=== PATIENT | female | born 1945 | race Caucasian/White ===

== ENCOUNTER 2019-09-16 01:59 | Inpatient (IN) ==
[2019-09-16] MEDS ORDERED: Naloxone 0.4 MG/ML INJ IVP PRN (03:43)
[2019-09-16] MEDS ORDERED: Acetaminophen 325 MG TABLET PO PRN (04:03)
[2019-09-16] MEDS ORDERED: Ondansetron ODT 4 MG TAB.RAPDIS SL PRN (04:03)
[2019-09-16] MEDS ORDERED: Nitroglycerin 0.4 MG TAB.SUBL SL PRN (04:06)
[2019-09-16] MEDS ORDERED: *HR* Dextrose 50 % in Water (Syg) 50 ML SYRINGE IVP PRN (04:06)
[2019-09-16] MEDS ORDERED: D5% in Water 1,000 ML IVC PRN (04:06)
[2019-09-16] MEDS ORDERED: Dextrose Gel 15 GM/37.5 ML TUBE PO PRN ×2 (04:06)
[2019-09-16] MEDS ORDERED: 0.9 % Sodium Chloride 1,000 ML IVC SCH (04:45)
[2019-09-16] MEDS ORDERED: Nicotine 2 MG GUM BC PRN (05:26)
[2019-09-16] MEDS: Azithromycin 500 MG in 0.9 % Sodium Chloride 250 ML IVPB SCH (05:50)
[2019-09-16] MEDS ORDERED: *HR* Heparin 5,000 UNIT/ML VIAL SQ SCH (06:00)
[2019-09-16] MEDS: Ipratropium/Albuterol Neb 3 ML IH SCH ×4 (06:07→21:32)
[2019-09-16 07:49] LABS: Estimated Average Glucose 128 mg/dl
[2019-09-16] MEDS: Insulin LISPRO 300 UNITS/3 ML VIAL SQ SCH ×3 (08:59→18:03)
[2019-09-16] MEDS: MethylPREDNISolone 40 MG/ML VIAL IVP SCH ×2 (09:01→17:05)
[2019-09-16] MEDS: Nicotine 21 MG PATCH.TD24 TD SCH (09:01)
[2019-09-16] MEDS: Budesonide/Formoterol 160/4.5 1 PUFF INH IH SCH ×2 (10:52→21:32)
[2019-09-16] MEDS ORDERED: Heparin 25,000 UNIT/250 ML D5W 25,000 UNIT/250 ML IV.SOLN IVC SCH ×2 (11:26→14:00)
[2019-09-16] MEDS ORDERED: *HR* Heparin 5,000 UNIT/ML VIAL IVP ONE ×2 (11:27→14:00)
[2019-09-16] MEDS ORDERED: *HR* Heparin 5,000 UNIT/ML VIAL IVP PRN ×2 (14:00)
[2019-09-16] MEDS ORDERED: Perflutren Lipid Microsphere 1.3 ML in 0.9 % Sodium Chloride 8.7 ML IVP ONE (16:54)
[2019-09-16] MEDS: Pregabalin 75 MG CAPSULE PO SCH (20:56)
[2019-09-16] MEDS: Isosorbide MONOnitrate (24 HR) 30 MG TAB.ER.24H PO SCH (20:56)
[2019-09-16] MEDS: carvediloL 6.25 MG TABLET PO SCH (20:56)
[2019-09-16] MEDS: Benzonatate 100 MG CAPSULE PO SCH (20:56)
[2019-09-17] MEDS: MethylPREDNISolone 40 MG/ML VIAL IVP SCH ×3 (00:25→15:23)
[2019-09-17 01:01] LABS: Hematocrit 35.9 % (35.3-44.9); Hemoglobin 12.2 g/dL (11.5-15.4); Mean Corpuscular Hemoglobin 31.9 pg (28.0-33.3); Mean Corpuscular Volume 93.7 fL (83.0-100.0); Mean Platelet Volume 9.7 fL (9.4-12.4); Platelet Count 174 K/mcL (140-400); Red Blood Count 3.83 M/mcL (3.82-4.97); Red Cell Distribution Width 12.2 % (11.5-14.5); White Blood Count 9.4 K/mcL (4.3-11.1)
[2019-09-17 01:05] LABS: Prothrombin Time 11.8 Seconds (9.4-12.1)
[2019-09-17 01:21] LABS: Chol/HDL Ratio 2.7 (0-4.9)
[2019-09-17 01:22] LABS: BUN/Creatinine Ratio 29 (6-26); Blood Urea Nitrogen 20 mg/dL (8-23); Calcium 8.8 mg/dL (8.6-10.3); Carbon Dioxide 28 mEq/L (23-29); Chloride 101 mEq/L (98-107); Glucose 183 mg/dL (70-105); Magnesium 1.5 mg/dL (1.6-2.6); Osmolality,Calculated 291 (280-300); Phosphorous 2.8 mg/dL (2.7-4.5); Sodium 137 mEq/L (136-145); eGFR For African Americans > 60 (> 60); eGFR For Non-African Americans > 60 (> 60)
[2019-09-17] MEDS: Azithromycin 500 MG in 0.9 % Sodium Chloride 250 ML IVPB SCH (04:12)
[2019-09-17] MEDS: Ipratropium/Albuterol Neb 3 ML IH SCH ×4 (04:17→22:05)
[2019-09-17] MEDS: Furosemide 20 MG TABLET PO SCH (08:04)
[2019-09-17] MEDS: Loratadine 10 MG TABLET PO SCH (08:05)
[2019-09-17] MEDS: Pregabalin 75 MG CAPSULE PO SCH ×2 (08:05→21:47)
[2019-09-17] MEDS: Benzonatate 100 MG CAPSULE PO SCH ×3 (08:05→21:46)
[2019-09-17] MEDS: Cholecalciferol (D-3) 1,000 UNIT (25MCG) TABLET PO SCH (08:05)
[2019-09-17] MEDS: carvediloL 6.25 MG TABLET PO SCH ×2 (08:05→16:39)
[2019-09-17] MEDS: Insulin LISPRO 300 UNITS/3 ML VIAL SQ SCH ×4 (08:06→21:52)
[2019-09-17] MEDS: Nicotine 21 MG PATCH.TD24 TD SCH (08:06)
[2019-09-17] MEDS ORDERED: FLUoxetine 20 MG CAPSULE PO SCH ×2 (09:00)
[2019-09-17] MEDS ORDERED: predniSONE 20 MG TABLET PO SCH (09:00)
[2019-09-17] MEDS: Budesonide/Formoterol 160/4.5 1 PUFF INH IH SCH ×2 (11:11→22:05)
[2019-09-17] MEDS: Tiotropium 18 MCG inhalation IH SCH (11:13)
[2019-09-17] MEDS: *HR* Heparin 5,000 UNIT/ML VIAL SQ SCH (16:43)
[2019-09-17] MEDS: Isosorbide MONOnitrate (24 HR) 30 MG TAB.ER.24H PO SCH (21:47)
[2019-09-17] MEDS: Insulin DETEMIR 100 UNIT/ML X5UNITS SQ SCH (21:49)
[2019-09-17] MEDS ORDERED: *HR* Labetalol 20 MG/4 ML SYRINGE IVP ONE (21:53)
[2019-09-18] MEDS: Ipratropium/Albuterol Neb 3 ML IH SCH ×4 (03:20→22:38)
[2019-09-18 04:07] LABS: Hematocrit 34.6 % (35.3-44.9); Hemoglobin 12.1 g/dL (11.5-15.4); Mean Corpuscular Hemoglobin 32.5 pg (28.0-33.3); Mean Platelet Volume 9.9 fL (9.4-12.4); Platelet Count 161 K/mcL (140-400); Red Blood Count 3.72 M/mcL (3.82-4.97); Red Cell Distribution Width 12.3 % (11.5-14.5); White Blood Count 11.8 K/mcL (4.3-11.1)
[2019-09-18 04:27] LABS: BUN/Creatinine Ratio 30 (6-26); Blood Urea Nitrogen 26 mg/dL (8-23); Calcium 9.2 mg/dL (8.6-10.3); Carbon Dioxide 29 mEq/L (23-29); Chloride 98 mEq/L (98-107); Glucose 152 mg/dL (70-105); Osmolality,Calculated 286 (280-300); Sodium 134 mEq/L (136-145); eGFR For African Americans > 60 (> 60); eGFR For Non-African Americans > 60 (> 60)
[2019-09-18] MEDS: *HR* Heparin 5,000 UNIT/ML VIAL SQ SCH ×2 (05:21→16:59)
[2019-09-18] MEDS: Azithromycin 500 MG in 0.9 % Sodium Chloride 250 ML IVPB SCH (05:21)
[2019-09-18] MEDS: Insulin LISPRO 300 UNITS/3 ML VIAL SQ SCH ×4 (07:34→19:42)
[2019-09-18] MEDS: Tiotropium 18 MCG inhalation IH SCH (07:51)
[2019-09-18] MEDS: Pregabalin 75 MG CAPSULE PO SCH ×2 (09:11→19:41)
[2019-09-18] MEDS: Cholecalciferol (D-3) 1,000 UNIT (25MCG) TABLET PO SCH (09:11)
[2019-09-18] MEDS: carvediloL 6.25 MG TABLET PO SCH ×2 (09:12→16:59)
[2019-09-18] MEDS: predniSONE 20 MG TABLET PO SCH (09:12)
[2019-09-18] MEDS: Loratadine 10 MG TABLET PO SCH (09:12)
[2019-09-18] MEDS: Benzonatate 100 MG CAPSULE PO SCH ×3 (09:12→19:41)
[2019-09-18] MEDS: Furosemide 20 MG TABLET PO SCH (09:12)
[2019-09-18] MEDS: Nicotine 21 MG PATCH.TD24 TD SCH (09:12)
[2019-09-18] MEDS: FLUoxetine 20 MG CAPSULE PO SCH (09:14)
[2019-09-18] MEDS: Budesonide/Formoterol 160/4.5 1 PUFF INH IH SCH ×2 (10:48→22:38)
[2019-09-18] MEDS: Insulin DETEMIR 100 UNIT/ML X5UNITS SQ SCH (19:41)
[2019-09-18] MEDS: Isosorbide MONOnitrate (24 HR) 30 MG TAB.ER.24H PO SCH (19:41)
[2019-09-19] MEDS: Ipratropium/Albuterol Neb 3 ML IH SCH ×4 (04:01→22:15)
[2019-09-19] MEDS: *HR* Heparin 5,000 UNIT/ML VIAL SQ SCH ×2 (05:03→17:46)
[2019-09-19 06:56] LABS: Hematocrit 35.3 % (35.3-44.9); Mean Corpuscular Hemoglobin 32.1 pg (28.0-33.3); Mean Corpuscular Volume 94.4 fL (83.0-100.0); Mean Platelet Volume 10.3 fL (9.4-12.4); Platelet Count 155 K/mcL (140-400); Red Blood Count 3.74 M/mcL (3.82-4.97); Red Cell Distribution Width 12.2 % (11.5-14.5); White Blood Count 9.3 K/mcL (4.3-11.1)
[2019-09-19 07:18] LABS: BUN/Creatinine Ratio 32 (6-26); Blood Urea Nitrogen 26 mg/dL (8-23); Calcium 8.9 mg/dL (8.6-10.3); Carbon Dioxide 31 mEq/L (23-29); Chloride 98 mEq/L (98-107); Glucose 78 mg/dL (70-105); Osmolality,Calculated 292 (280-300); Potassium 3.6 mEq/L (3.5-5.1); Sodium 139 mEq/L (136-145); eGFR For African Americans > 60 (> 60); eGFR For Non-African Americans > 60 (> 60)
[2019-09-19] MEDS: Insulin LISPRO 300 UNITS/3 ML VIAL SQ SCH ×4 (10:06→20:48)
[2019-09-19] MEDS: Pregabalin 75 MG CAPSULE PO SCH ×2 (10:06→20:13)
[2019-09-19] MEDS: Furosemide 20 MG TABLET PO SCH (10:07)
[2019-09-19] MEDS: Azithromycin 250 MG TABLET PO SCH (10:07)
[2019-09-19] MEDS: Cholecalciferol (D-3) 1,000 UNIT (25MCG) TABLET PO SCH (10:07)
[2019-09-19] MEDS: FLUoxetine 20 MG CAPSULE PO SCH (10:07)
[2019-09-19] MEDS: carvediloL 6.25 MG TABLET PO SCH ×2 (10:07→15:54)
[2019-09-19] MEDS: Loratadine 10 MG TABLET PO SCH (10:07)
[2019-09-19] MEDS: Nicotine 21 MG PATCH.TD24 TD SCH (10:08)
[2019-09-19] MEDS: predniSONE 20 MG TABLET PO SCH (10:08)
[2019-09-19] MEDS: Benzonatate 100 MG CAPSULE PO SCH ×3 (10:08→20:12)
[2019-09-19] MEDS: Budesonide/Formoterol 160/4.5 1 PUFF INH IH SCH ×2 (11:10→22:15)
[2019-09-19] MEDS: Tiotropium 18 MCG inhalation IH SCH (11:11)
[2019-09-19] MEDS: Isosorbide MONOnitrate (24 HR) 30 MG TAB.ER.24H PO SCH (20:13)
[2019-09-19] MEDS: Insulin DETEMIR 100 UNIT/ML X5UNITS SQ SCH (20:51)
[2019-09-20] MEDS: Ipratropium/Albuterol Neb 3 ML IH SCH ×4 (03:49→21:38)
[2019-09-20] MEDS: *HR* Heparin 5,000 UNIT/ML VIAL SQ SCH ×2 (05:55→17:24)
[2019-09-20] MEDS: FLUoxetine 20 MG CAPSULE PO SCH (09:39)
[2019-09-20] MEDS: Cholecalciferol (D-3) 1,000 UNIT (25MCG) TABLET PO SCH (09:40)
[2019-09-20] MEDS: Azithromycin 250 MG TABLET PO SCH (09:40)
[2019-09-20] MEDS: Pregabalin 75 MG CAPSULE PO SCH ×2 (09:40→19:40)
[2019-09-20] MEDS: Benzonatate 100 MG CAPSULE PO SCH ×3 (09:41→19:40)
[2019-09-20] MEDS: carvediloL 6.25 MG TABLET PO SCH ×2 (09:42→17:24)
[2019-09-20] MEDS: Loratadine 10 MG TABLET PO SCH (09:42)
[2019-09-20] MEDS: Furosemide 20 MG TABLET PO SCH (09:42)
[2019-09-20] MEDS: predniSONE 20 MG TABLET PO SCH (09:42)
[2019-09-20] MEDS: Insulin LISPRO 300 UNITS/3 ML VIAL SQ SCH ×4 (09:43→19:42)
[2019-09-20] MEDS: Nicotine 21 MG PATCH.TD24 TD SCH (09:44)
[2019-09-20] MEDS: Budesonide/Formoterol 160/4.5 1 PUFF INH IH SCH ×2 (10:59→21:38)
[2019-09-20] MEDS: Tiotropium 18 MCG inhalation IH SCH (11:00)
[2019-09-20] MEDS: Insulin DETEMIR 100 UNIT/ML X5UNITS SQ SCH (19:40)
[2019-09-20] MEDS: Isosorbide MONOnitrate (24 HR) 30 MG TAB.ER.24H PO SCH (19:40)
[2019-09-21 01:30] LABS: Basophils % 0.1 %; Hematocrit 34.1 % (35.3-44.9); Hemoglobin 11.6 g/dL (11.5-15.4); Immature Granulocytes % 0.9 % (0-4); Lymphocytes # 1.7 K/mcL (0.6-4.6); Mean Corpuscular Hemoglobin 31.9 pg (28.0-33.3); Mean Corpuscular Volume 93.7 fL (83.0-100.0); Mean Platelet Volume 10.9 fL (9.4-12.4); Monocytes # 0.7 K/mcL (0.0-1.3); Monocytes % 5.6 %; Neutrophils # 10.3 K/mcL (1.6-8.9); Platelet Count 156 K/mcL (140-400); Red Blood Count 3.64 M/mcL (3.82-4.97); Red Cell Distribution Width 12.3 % (11.5-14.5); Segmented Neutrophils % 80.4 %; White Blood Count 12.7 K/mcL (4.3-11.1)
[2019-09-21 01:50] LABS: BUN/Creatinine Ratio 40 (6-26); Blood Urea Nitrogen 42 mg/dL (8-23); Calcium 8.9 mg/dL (8.6-10.3); Carbon Dioxide 30 mEq/L (23-29); Chloride 100 mEq/L (98-107); Glucose 196 mg/dL (70-105); Osmolality,Calculated 300 (280-300); Potassium 3.9 mEq/L (3.5-5.1); Sodium 137 mEq/L (136-145); eGFR For African Americans > 60 (> 60); eGFR For Non-African Americans 52 (> 60)
[2019-09-21] MEDS: Ipratropium/Albuterol Neb 3 ML IH SCH ×3 (03:17→16:05)
[2019-09-21] MEDS: *HR* Heparin 5,000 UNIT/ML VIAL SQ SCH ×2 (05:47→17:27)
[2019-09-21] MEDS: Insulin LISPRO 300 UNITS/3 ML VIAL SQ SCH ×3 (07:35→17:27)
[2019-09-21] MEDS ORDERED: Verapamil 5 MG/2 ML VIAL ONE (08:59)
[2019-09-21] MEDS ORDERED: *HR* Heparin 10,000 UNIT/10 ML VIAL ONE (09:00)
[2019-09-21] MEDS ORDERED: Nitroglycerin 1,000 MCG/10 ML VIAL IV ONE (09:00)
[2019-09-21] MEDS ORDERED: 0.9 % Sodium Chloride 2,000 ML ONE (09:00)
[2019-09-21] MEDS ORDERED: Heparin 1,000 UNITS/500 mL 500 ML ONE (09:00)
[2019-09-21] MEDS ORDERED: ISOVUE-370 200 ML INFUS..BTL ONE (09:00)
[2019-09-21] MEDS ORDERED: *HR* FentaNYL (PF) 100 MCG/2 ML VIAL ONE (09:42)
[2019-09-21] MEDS ORDERED: *HR* Midazolam HCl 2 MG/2 ML VIAL ONE (09:43)
[2019-09-21] MEDS: Budesonide/Formoterol 160/4.5 1 PUFF INH IH SCH (10:23)
[2019-09-21] MEDS: Tiotropium 18 MCG inhalation IH SCH (10:23)
[2019-09-21] MEDS: Furosemide 20 MG TABLET PO SCH (11:07)
[2019-09-21] MEDS: FLUoxetine 20 MG CAPSULE PO SCH (11:08)
[2019-09-21] MEDS: carvediloL 6.25 MG TABLET PO SCH ×2 (11:08→17:27)
[2019-09-21] MEDS: Pregabalin 75 MG CAPSULE PO SCH (11:08)
[2019-09-21] MEDS: Azithromycin 250 MG TABLET PO SCH (11:08)
[2019-09-21] MEDS: Benzonatate 100 MG CAPSULE PO SCH ×2 (11:08→15:34)
[2019-09-21] MEDS: Nicotine 21 MG PATCH.TD24 TD SCH (11:08)
[2019-09-21] MEDS: Loratadine 10 MG TABLET PO SCH (11:08)
[2019-09-21] MEDS: Cholecalciferol (D-3) 1,000 UNIT (25MCG) TABLET PO SCH (11:08)
[2019-09-21] MEDS: predniSONE 20 MG TABLET PO SCH (11:08)
[2019-09-21 16:02] VITALS: BP 121/74
== END 2019-09-21 20:10 | disposition home or self-care (01) | DRG 190 ==
LOC: 2ANU
PROVIDERS: ADMIT Student in an Organized Health Care Education/Training Program; ATTEND Student in an Organized Health Care Education/Training Program

== ENCOUNTER 2020-02-15 00:09 | Inpatient (IN) ==
[2020-02-15] MEDS ORDERED: Naloxone 0.4 MG/ML INJ IVP PRN (03:13)
[2020-02-15] MEDS ORDERED: Ondansetron 4 MG/2 ML VIAL IVP PRN (03:13)
[2020-02-15] MEDS ORDERED: *HR* Dextrose 50 % in Water (Vial) 50 ML VIAL IVP PRN (03:17)
[2020-02-15] MEDS ORDERED: D5% in Water 1,000 ML IVC PRN (03:17)
[2020-02-15] MEDS ORDERED: Dextrose Gel 15 GM/37.5 ML TUBE PO PRN ×2 (03:17)
[2020-02-15] MEDS ORDERED: *HR* Heparin 5,000 UNIT/ML VIAL IVP ONE (04:24)
[2020-02-15] MEDS ORDERED: *HR* Heparin 5,000 UNIT/ML VIAL IVP PRN ×2 (04:24)
[2020-02-15] MEDS: Heparin 25,000 UNIT/250 ML D5W 25,000 UNIT/250 ML IV.SOLN IVC SCH (06:25)
[2020-02-15 06:32] LABS: Basophils % 0.1 %; Hematocrit 37.5 % (35.3-44.9); Hemoglobin 12.2 g/dL (11.5-15.4); Immature Granulocytes % 0.7 % (0-4); Lymphocytes # 0.8 K/mcL (0.6-4.6); Lymphocytes % 10.1 %; Mean Corpuscular HGB Conc 32.5 g/dL (31.6-35.5); Mean Corpuscular Hemoglobin 30.9 pg (28.0-33.3); Mean Corpuscular Volume 94.9 fL (83.0-100.0); Mean Platelet Volume 9.6 fL (9.4-12.4); Monocytes # 0.1 K/mcL (0.0-1.3); Monocytes % 0.9 %; Neutrophils # 6.5 K/mcL (1.6-8.9); Platelet Count 192 K/mcL (140-400); Red Blood Count 3.95 M/mcL (3.82-4.97); Red Cell Distribution Width 12.7 % (11.5-14.5); Segmented Neutrophils % 88.2 %; White Blood Count 7.4 K/mcL (4.3-11.1)
[2020-02-15 06:41] LABS: Heparin anti-factor XA UFH 0.38 IU/mL (0.30-0.70); INR 1.1
[2020-02-15 06:54] LABS: Alanine Aminotransferase 9 Units/L (7-52); Albumin 3.7 g/dL (3.5-5.7); Albumin/Globulin Ratio 1.4 (1.1-2.2); Alkaline Phosphatase 54 Units/L (34-104); Aspartate Amino Transferase 16 Units/L (13-39); BUN/Creatinine Ratio 16 (6-26); Bilirubin,Total 0.2 mg/dL (0.3-1.0); Blood Urea Nitrogen 11 mg/dL (8-23); Calcium 8.8 mg/dL (8.6-10.3); Carbon Dioxide 26 mEq/L (23-29); Chloride 101 mEq/L (98-107); Chol/HDL Ratio 2.1 (0-4.9); Cholesterol 111 mg/dL (< 200); Globulin 2.6 g/dL (2.4-3.5); Glucose 262 mg/dL (70-105); HDL Cholesterol 53 mg/dL (40-59); LDL Cholesterol,Calculated 42 mg/dL (< 100); Magnesium 1.4 mg/dL (1.6-2.6); Osmolality,Calculated 288 (280-300); Potassium 4.1 mEq/L (3.5-5.1); Sodium 135 mEq/L (136-145); Total Protein 6.3 g/dL (6.4-8.9); Triglycerides 80 mg/dL (< 150); eGFR For African Americans > 60 (> 60); eGFR For Non-African Americans > 60 (> 60)
[2020-02-15] MEDS: methylPREDNISolone 125 MG/2 ML VIAL IVP SCH ×2 (07:34→16:15)
[2020-02-15] MEDS: Insulin LISPRO 300 UNITS/3 ML VIAL SQ SCH ×4 (07:56→20:41)
[2020-02-15] MEDS ORDERED: Magnesium Sulfate 1 GM/102 ML PIGGYBACK IVPB ONE (08:06)
[2020-02-15] MEDS: Ipratropium 1 PUFF INHALER IH SCH ×3 (10:54→22:00)
[2020-02-15 11:42] LABS: Estimated Average Glucose 137 mg/dl; Hemoglobin A1C 6.4 %
[2020-02-15] MEDS: Pregabalin 75 MG CAPSULE PO SCH ×2 (16:15→20:26)
[2020-02-15] MEDS: Insulin DETEMIR 100 UNIT/ML X5UNITS SQ SCH (20:26)
[2020-02-15] MEDS: Budesonide/Formoterol 160/4.5 1 PUFF INH IH SCH (22:00)
[2020-02-15] MEDS ORDERED: Azithromycin 500 MG in 0.9 % Sodium Chloride 250 ML IVPB SCH (23:00)
[2020-02-16] MEDS: methylPREDNISolone 125 MG/2 ML VIAL IVP SCH ×4 (00:02→23:23)
[2020-02-16] MEDS: Ipratropium 1 PUFF INHALER IH SCH ×4 (03:26→21:53)
[2020-02-16 03:36] LABS: BUN/Creatinine Ratio 22 (6-26); Blood Urea Nitrogen 16 mg/dL (8-23); Calcium 9.2 mg/dL (8.6-10.3); Carbon Dioxide 25 mEq/L (23-29); Chloride 100 mEq/L (98-107); Glucose 192 mg/dL (70-105); Osmolality,Calculated 286 (280-300); Potassium 3.9 mEq/L (3.5-5.1); Sodium 135 mEq/L (136-145); eGFR For African Americans > 60 (> 60); eGFR For Non-African Americans > 60 (> 60)
[2020-02-16 03:39] LABS: Troponin I 1.23 ng/mL (< 0.04)
[2020-02-16] MEDS: Pregabalin 75 MG CAPSULE PO SCH ×2 (07:52→20:43)
[2020-02-16] MEDS: Insulin LISPRO 300 UNITS/3 ML VIAL SQ SCH ×4 (07:57→20:43)
[2020-02-16] MEDS ORDERED: carvediloL 6.25 MG TABLET PO SCH (08:00)
[2020-02-16] MEDS ORDERED: carvediloL 6.25 MG TABLET PO ONE (08:38)
[2020-02-16] MEDS ORDERED: FLUoxetine HCl Oral Soln 20 MG/5 ML UDC PO SCH (09:00)
[2020-02-16] MEDS: Budesonide/Formoterol 160/4.5 1 PUFF INH IH SCH ×2 (11:14→21:53)
[2020-02-16] MEDS ORDERED: *HR* HYDROcodone/Acet 5/325 mg TABLET PO PRN (11:29)
[2020-02-16] MEDS ORDERED: FLUoxetine 20 MG CAPSULE PO ONE (11:32)
[2020-02-16] MEDS: Heparin 25,000 UNIT/250 ML D5W 25,000 UNIT/250 ML IV.SOLN IVC SCH (13:26)
[2020-02-16] MEDS: carvediloL 25 MG TABLET PO SCH (16:31)
[2020-02-16] MEDS: Insulin DETEMIR 100 UNIT/ML X5UNITS SQ SCH (20:43)
[2020-02-16] MEDS ORDERED: Perflutren Lipid Microsphere 1.3 ML in 0.9 % Sodium Chloride 8.7 ML IVP PRN (21:00)
[2020-02-16] MEDS: Levalbuterol Neb 1.25 MG/3 ML IH SCH (21:52)
[2020-02-16] MEDS: Azithromycin 250 MG TABLET PO SCH (23:23)
[2020-02-17] MEDS: Ipratropium 1 PUFF INHALER IH SCH ×4 (03:40→21:33)
[2020-02-17] MEDS: Levalbuterol Neb 1.25 MG/3 ML IH SCH ×4 (03:40→21:33)
[2020-02-17] MEDS: methylPREDNISolone 125 MG/2 ML VIAL IVP SCH (07:39)
[2020-02-17] MEDS: Pregabalin 75 MG CAPSULE PO SCH ×2 (07:39→21:03)
[2020-02-17] MEDS: carvediloL 25 MG TABLET PO SCH ×2 (07:40→16:52)
[2020-02-17] MEDS: Insulin LISPRO 300 UNITS/3 ML VIAL SQ SCH ×4 (07:41→21:01)
[2020-02-17] MEDS ORDERED: FLUoxetine HCl Oral Soln 20 MG/5 ML UDC PO SCH (09:00)
[2020-02-17] MEDS ORDERED: Azithromycin 250 MG TABLET PO SCH (09:00)
[2020-02-17] MEDS: Budesonide/Formoterol 160/4.5 1 PUFF INH IH SCH ×2 (10:42→21:33)
[2020-02-17] MEDS ORDERED: Furosemide 20 MG TABLET PO SCH (12:45)
[2020-02-17] MEDS ORDERED: Isosorbide MONOnitrate (24 HR) 30 MG TAB.ER.24H PO SCH ×2 (12:45→21:00)
[2020-02-17] MEDS ORDERED: Furosemide 40 MG in 0.9 % Sodium Chloride 50 ML IV ONE (13:35)
[2020-02-17] MEDS ORDERED: Furosemide 40 MG/4 ML VIAL IVP ONE (13:45)
[2020-02-17] MEDS: MethylPREDNISolone 40 MG/ML VIAL IVP SCH ×2 (16:52→22:59)
[2020-02-17] MEDS: ICOSAPENT ETHYL 2 GM PO SCH (19:17)
[2020-02-17] MEDS ORDERED: NON-FORMULARY MEDICATION 1 EACH EACH (Pregabalin [Lyrica] 150 MG) PO SCH (21:00)
[2020-02-17] MEDS: Heparin 25,000 UNIT/250 ML D5W 25,000 UNIT/250 ML IV.SOLN IVC SCH (21:02)
[2020-02-17] MEDS: Insulin DETEMIR 100 UNIT/ML X5UNITS SQ SCH (21:03)
[2020-02-17] MEDS: Fluticasone Propionate Nasal 50 MCG/SPRAY BOTTLE NS SCH (22:01)
[2020-02-17] MEDS: Azithromycin 250 MG TABLET PO SCH (22:59)
[2020-02-18] MEDS: Levalbuterol Neb 1.25 MG/3 ML IH SCH ×3 (03:31→15:35)
[2020-02-18] MEDS: Ipratropium 1 PUFF INHALER IH SCH ×3 (03:31→15:35)
[2020-02-18 05:30] LABS: Hematocrit 32.5 % (35.3-44.9); Hemoglobin 10.7 g/dL (11.5-15.4); Immature Granulocytes % 0.5 % (0-4); Lymphocytes # 0.9 K/mcL (0.6-4.6); Lymphocytes % 9.1 %; Mean Corpuscular HGB Conc 32.9 g/dL (31.6-35.5); Mean Corpuscular Hemoglobin 31.7 pg (28.0-33.3); Mean Corpuscular Volume 96.2 fL (83.0-100.0); Mean Platelet Volume 10.4 fL (9.4-12.4); Monocytes # 0.2 K/mcL (0.0-1.3); Monocytes % 2.3 %; Neutrophils # 8.6 K/mcL (1.6-8.9); Platelet Count 160 K/mcL (140-400); Red Blood Count 3.38 M/mcL (3.82-4.97); Red Cell Distribution Width 12.9 % (11.5-14.5); Segmented Neutrophils % 88.1 %; White Blood Count 9.7 K/mcL (4.3-11.1)
[2020-02-18 05:50] LABS: BUN/Creatinine Ratio 39 (6-26); Blood Urea Nitrogen 37 mg/dL (8-23); Calcium 8.9 mg/dL (8.6-10.3); Carbon Dioxide 29 mEq/L (23-29); Chloride 97 mEq/L (98-107); Glucose 176 mg/dL (70-105); Osmolality,Calculated 289 (280-300); Potassium 3.9 mEq/L (3.5-5.1); Sodium 133 mEq/L (136-145); eGFR For African Americans > 60 (> 60); eGFR For Non-African Americans 57 (> 60)
[2020-02-18] MEDS ORDERED: Loratadine 10 MG TABLET PO SCH (09:00)
[2020-02-18] MEDS ORDERED: Cholecalciferol (D-3) 1,000 UNIT (25MCG) TABLET PO SCH (09:00)
[2020-02-18] MEDS ORDERED: FLUoxetine 20 MG CAPSULE PO SCH (09:00)
[2020-02-18] MEDS ORDERED: NON-FORMULARY MEDICATION 1 EACH EACH (Fluoxetine Hcl [Prozac] 40 MG) PO SCH (09:00)
[2020-02-18] MEDS ORDERED: Magnesium Oxide 400 MG TABLET PO SCH (09:00)
[2020-02-18 09:05] LABS: Basophils % 0.1 %; Hematocrit 32.9 % (35.3-44.9); Hemoglobin 10.7 g/dL (11.5-15.4); Immature Granulocytes % 1.6 % (0-4); Lymphocytes # 0.8 K/mcL (0.6-4.6); Lymphocytes % 8.6 %; Mean Corpuscular HGB Conc 32.5 g/dL (31.6-35.5); Mean Corpuscular Hemoglobin 31.2 pg (28.0-33.3); Mean Corpuscular Volume 95.9 fL (83.0-100.0); Monocytes # 0.3 K/mcL (0.0-1.3); Monocytes % 3.3 %; Neutrophils # 8.3 K/mcL (1.6-8.9); Platelet Count 156 K/mcL (140-400); Red Blood Count 3.43 M/mcL (3.82-4.97); Red Cell Distribution Width 12.9 % (11.5-14.5); Segmented Neutrophils % 86.4 %; White Blood Count 9.6 K/mcL (4.3-11.1)
[2020-02-18] MEDS: carvediloL 25 MG TABLET PO SCH ×2 (09:11→17:12)
[2020-02-18] MEDS: Pregabalin 75 MG CAPSULE PO SCH (09:12)
[2020-02-18] MEDS: MethylPREDNISolone 40 MG/ML VIAL IVP SCH ×2 (09:12→17:11)
[2020-02-18] MEDS: Insulin LISPRO 300 UNITS/3 ML VIAL SQ SCH ×3 (09:13→18:03)
[2020-02-18] MEDS: ICOSAPENT ETHYL 2 GM PO SCH ×2 (09:14→17:12)
[2020-02-18] MEDS: Fluticasone Propionate Nasal 50 MCG/SPRAY BOTTLE NS SCH (09:14)
[2020-02-18] MEDS: Budesonide/Formoterol 160/4.5 1 PUFF INH IH SCH (10:45)
[2020-02-18] MEDS ORDERED: Nitroglycerin 1,000 MCG/10 ML VIAL IV ONE (12:13)
[2020-02-18] MEDS ORDERED: *HR* Heparin 10,000 UNIT/10 ML VIAL ONE (12:13)
[2020-02-18] MEDS ORDERED: Heparin 1,000 UNITS/500 mL 500 ML ONE (12:13)
[2020-02-18] MEDS ORDERED: ISOVUE-370 200 ML INFUS..BTL ONE (12:13)
[2020-02-18] MEDS ORDERED: 0.9 % Sodium Chloride 2,000 ML ONE (12:13)
[2020-02-18] MEDS ORDERED: *HR* Midazolam HCl 2 MG/2 ML VIAL ONE (12:27)
[2020-02-18] MEDS ORDERED: Acetaminophen 325 MG TABLET PO PRN (12:58)
[2020-02-18 19:59] VITALS: BP 104/66
== END 2020-02-18 19:15 | disposition home or self-care (01) | DRG 280 ==
LOC: 2NENU → SUATTDRO 02-16 10:17 → 3ANU 02-17 11:22
PROVIDERS: ADMIT Family Medicine; ATTEND Family Medicine

== ENCOUNTER 2020-07-17 09:36 | Inpatient (IN) ==
[2020-07-17] MEDS ORDERED: Naloxone 0.4 MG/ML INJ IVP PRN (11:28)
[2020-07-17] MEDS ORDERED: Albuterol 2.5 MG/3 ML NEBULIZER IH PRN (11:32)
[2020-07-17] MEDS ORDERED: Azithromycin 500 MG in 0.9 % Sodium Chloride 250 ML IVPB SCH (12:00)
[2020-07-17] MEDS ORDERED: *HR* Dextrose 50 % in Water (Vial) 50 ML VIAL IVP PRN (12:49)
[2020-07-17] MEDS ORDERED: D5% in Water 1,000 ML IVC PRN (12:49)
[2020-07-17] MEDS ORDERED: Dextrose Gel 15 GM/37.5 ML TUBE PO PRN ×2 (12:49)
[2020-07-17] MEDS: *HR* Heparin 5,000 UNIT/ML VIAL SQ SCH ×2 (13:50→22:30)
[2020-07-17] MEDS: Ipratropium/Albuterol Neb 3 ML IH SCH ×2 (15:03→21:26)
[2020-07-17] MEDS: MethylPREDNISolone 40 MG/ML VIAL IVP SCH ×2 (15:23→23:17)
[2020-07-17] MEDS: Insulin LISPRO 300 UNITS/3 ML VIAL SQ SCH (16:12)
[2020-07-17] MEDS: carvediloL 6.25 MG TABLET PO SCH (16:25)
[2020-07-17] MEDS: Fluticasone Propionate Nasal 50 MCG/SPRAY BOTTLE NS SCH (19:45)
[2020-07-17] MEDS ORDERED: Insulin DETEMIR 100 UNIT/ML X5UNITS SQ SCH (21:00)
[2020-07-17] MEDS ORDERED: Isosorbide MONOnitrate (24 HR) 30 MG TAB.ER.24H PO SCH (21:00)
[2020-07-18] MEDS: Ipratropium/Albuterol Neb 3 ML IH SCH ×4 (03:24→22:06)
[2020-07-18] MEDS ORDERED: Furosemide 20 MG/2 ML VIAL IVP ONE ×3 (03:27→14:00)
[2020-07-18] MEDS: *HR* Heparin 5,000 UNIT/ML VIAL SQ SCH ×3 (05:37→21:25)
[2020-07-18] MEDS: Insulin LISPRO 300 UNITS/3 ML VIAL SQ SCH ×3 (08:21→16:54)
[2020-07-18] MEDS: Fluticasone Propionate Nasal 50 MCG/SPRAY BOTTLE NS SCH ×2 (08:21→21:24)
[2020-07-18] MEDS: MethylPREDNISolone 40 MG/ML VIAL IVP SCH ×2 (08:22→16:54)
[2020-07-18] MEDS: carvediloL 6.25 MG TABLET PO SCH ×2 (08:24→16:54)
[2020-07-18 08:29] LABS: ABG Base Excess 2 mEq/L (-2 to 3); ABG HCO3 26 mEq/L (21-27); ABG Oxygen Saturation 91 % (95-98); ABG PCO2 40 mmHg (35-45); ABG PH 7.42 pH Units (7.32-7.45); ABG PO2 59 mmHg (85-104); ABG TCO2 27 mEq/L (20-26)
[2020-07-18 08:46] LABS: Hematocrit 33.4 % (35.3-44.9); Hemoglobin 11.3 g/dL (11.5-15.4); Mean Corpuscular HGB Conc 33.8 g/dL (31.6-35.5); Mean Corpuscular Hemoglobin 30.7 pg (28.0-33.3); Mean Corpuscular Volume 90.8 fL (83.0-100.0); Mean Platelet Volume 9.5 fL (9.4-12.4); Platelet Count 156 K/mcL (140-400); Red Blood Count 3.68 M/mcL (3.82-4.97)
[2020-07-18] MEDS ORDERED: NON-FORMULARY MEDICATION 1 EACH EACH (Fluoxetine Hcl [Prozac] 40 MG) PO SCH (09:00)
[2020-07-18] MEDS ORDERED: Loratadine 10 MG TABLET PO SCH (09:00)
[2020-07-18] MEDS ORDERED: cefTRIAXone 1,000 MG in Water for inj. (sterile) 10 ML IVP SCH (09:00)
[2020-07-18] MEDS ORDERED: FLUoxetine 20 MG CAPSULE PO SCH (09:00)
[2020-07-18] MEDS ORDERED: Magnesium Oxide 400 MG TABLET PO SCH (09:00)
[2020-07-18] MEDS ORDERED: Furosemide 20 MG TABLET PO SCH (09:00)
[2020-07-18 09:02] LABS: BUN/Creatinine Ratio 27 (6-26); Blood Urea Nitrogen 22 mg/dL (8-23); Calcium 8.9 mg/dL (8.6-10.3); Carbon Dioxide 26 mEq/L (23-29); Chloride 102 mEq/L (98-107); Glucose 149 mg/dL (70-105); Osmolality,Calculated 290 (280-300); Potassium 3.9 mEq/L (3.5-5.1); Sodium 137 mEq/L (136-145); eGFR For African Americans > 60 (> 60); eGFR For Non-African Americans > 60 (> 60)
[2020-07-18] MEDS ORDERED: Perflutren Lipid Microsphere 1.3 ML in 0.9 % Sodium Chloride 8.7 ML IVP PRN ×2 (09:35→11:20)
[2020-07-18] MEDS ORDERED: Budesonide/Formoterol 160/4.5 1 PUFF INH IH SCH (10:00)
[2020-07-18] MEDS ORDERED: Pregabalin 75 MG CAPSULE PO SCH (10:30)
[2020-07-18] MEDS ORDERED: Albuterol 2.5 MG/3 ML NEBULIZER IH PRN (11:20)
[2020-07-18] MEDS ORDERED: Dextrose Gel 15 GM/37.5 ML TUBE PO PRN ×2 (11:20)
[2020-07-18] MEDS ORDERED: *HR* Dextrose 50 % in Water (Vial) 50 ML VIAL IVP PRN (11:20)
[2020-07-18] MEDS ORDERED: D5% in Water 1,000 ML IVC PRN (11:20)
[2020-07-18] MEDS ORDERED: Naloxone 0.4 MG/ML INJ IVP PRN (11:20)
[2020-07-18] MEDS: Azithromycin 500 MG in 0.9 % Sodium Chloride 250 ML IVPB SCH (12:55)
[2020-07-18] MEDS ORDERED: MethylPREDNISolone 40 MG/ML VIAL IVP SCH (18:00)
[2020-07-18] MEDS: Pregabalin 75 MG CAPSULE PO SCH (21:24)
[2020-07-18] MEDS: Isosorbide MONOnitrate (24 HR) 30 MG TAB.ER.24H PO SCH (21:24)
[2020-07-18] MEDS: Insulin DETEMIR 100 UNIT/ML X5UNITS SQ SCH (21:27)
[2020-07-18] MEDS: Budesonide/Formoterol 160/4.5 1 PUFF INH IH SCH (22:06)
[2020-07-19 01:55] LABS: Hematocrit 33.7 % (35.3-44.9); Hemoglobin 11.3 g/dL (11.5-15.4); Mean Corpuscular HGB Conc 33.5 g/dL (31.6-35.5); Mean Corpuscular Hemoglobin 30.7 pg (28.0-33.3); Mean Corpuscular Volume 91.6 fL (83.0-100.0); Mean Platelet Volume 9.9 fL (9.4-12.4); Platelet Count 161 K/mcL (140-400); Red Blood Count 3.68 M/mcL (3.82-4.97); Red Cell Distribution Width 13.1 % (11.5-14.5); White Blood Count 9.1 K/mcL (4.3-11.1)
[2020-07-19 02:07] LABS: BUN/Creatinine Ratio 28 (6-26); Blood Urea Nitrogen 27 mg/dL (8-23); Calcium 8.8 mg/dL (8.6-10.3); Carbon Dioxide 27 mEq/L (23-29); Chloride 99 mEq/L (98-107); Glucose 188 mg/dL (70-105); Osmolality,Calculated 290 (280-300); Potassium 3.6 mEq/L (3.5-5.1); Sodium 135 mEq/L (136-145); eGFR For African Americans > 60 (> 60); eGFR For Non-African Americans 55 (> 60)
[2020-07-19] MEDS: Ipratropium/Albuterol Neb 3 ML IH SCH ×4 (03:51→21:55)
[2020-07-19] MEDS: MethylPREDNISolone 40 MG/ML VIAL IVP SCH (05:19)
[2020-07-19] MEDS: *HR* Heparin 5,000 UNIT/ML VIAL SQ SCH ×2 (05:19→13:30)
[2020-07-19] MEDS: FLUoxetine 20 MG CAPSULE PO SCH (07:48)
[2020-07-19] MEDS: cefTRIAXone 1,000 MG in Water for inj. (sterile) 10 ML IVP SCH (07:49)
[2020-07-19] MEDS: Pregabalin 75 MG CAPSULE PO SCH ×2 (07:49→20:56)
[2020-07-19] MEDS: carvediloL 6.25 MG TABLET PO SCH ×2 (07:49→17:10)
[2020-07-19] MEDS: Magnesium Oxide 400 MG TABLET PO SCH (07:49)
[2020-07-19] MEDS: Loratadine 10 MG TABLET PO SCH (07:49)
[2020-07-19] MEDS: Fluticasone Propionate Nasal 50 MCG/SPRAY BOTTLE NS SCH ×2 (07:50→20:56)
[2020-07-19] MEDS: Furosemide 20 MG TABLET PO SCH (07:50)
[2020-07-19] MEDS: Insulin LISPRO 300 UNITS/3 ML VIAL SQ SCH ×3 (07:51→17:12)
[2020-07-19] MEDS ORDERED: Furosemide 20 MG TABLET PO SCH (09:00)
[2020-07-19] MEDS: Budesonide/Formoterol 160/4.5 1 PUFF INH IH SCH ×2 (09:43→21:57)
[2020-07-19] MEDS: Azithromycin 500 MG in 0.9 % Sodium Chloride 250 ML IVPB SCH (13:27)
[2020-07-19] MEDS: Insulin DETEMIR 100 UNIT/ML X5UNITS SQ SCH (20:55)
[2020-07-19] MEDS: Isosorbide MONOnitrate (24 HR) 30 MG TAB.ER.24H PO SCH (20:56)
[2020-07-20 03:12] LABS: Hematocrit 33.6 % (35.3-44.9); Mean Corpuscular HGB Conc 32.7 g/dL (31.6-35.5); Mean Corpuscular Hemoglobin 30.1 pg (28.0-33.3); Mean Corpuscular Volume 91.8 fL (83.0-100.0); Mean Platelet Volume 9.7 fL (9.4-12.4); Platelet Count 147 K/mcL (140-400); Red Blood Count 3.66 M/mcL (3.82-4.97); Red Cell Distribution Width 13.1 % (11.5-14.5); White Blood Count 9.9 K/mcL (4.3-11.1)
[2020-07-20 03:27] LABS: BUN/Creatinine Ratio 29 (6-26); Blood Urea Nitrogen 28 mg/dL (8-23); Calcium 8.7 mg/dL (8.6-10.3); Carbon Dioxide 30 mEq/L (23-29); Chloride 98 mEq/L (98-107); Glucose 97 mg/dL (70-105); Magnesium 1.5 mg/dL (1.6-2.6); Osmolality,Calculated 283 (280-300); Potassium 3.5 mEq/L (3.5-5.1); Sodium 134 mEq/L (136-145); eGFR For African Americans > 60 (> 60); eGFR For Non-African Americans 56 (> 60)
[2020-07-20] MEDS: Ipratropium/Albuterol Neb 3 ML IH SCH ×2 (03:38→10:38)
[2020-07-20] MEDS: Insulin LISPRO 300 UNITS/3 ML VIAL SQ SCH ×2 (08:21→11:49)
[2020-07-20 08:38] LABS: Estimated Average Glucose 148 mg/dl; Hemoglobin A1C 6.8 %
[2020-07-20] MEDS: Loratadine 10 MG TABLET PO SCH (08:46)
[2020-07-20] MEDS: Magnesium Oxide 400 MG TABLET PO SCH (08:47)
[2020-07-20] MEDS: Furosemide 20 MG TABLET PO SCH (08:47)
[2020-07-20] MEDS: carvediloL 6.25 MG TABLET PO SCH (08:47)
[2020-07-20] MEDS: Pregabalin 75 MG CAPSULE PO SCH (08:47)
[2020-07-20] MEDS: FLUoxetine 20 MG CAPSULE PO SCH (08:47)
[2020-07-20] MEDS: Fluticasone Propionate Nasal 50 MCG/SPRAY BOTTLE NS SCH (08:48)
[2020-07-20] MEDS: cefTRIAXone 1,000 MG in Water for inj. (sterile) 10 ML IVP SCH (08:50)
[2020-07-20] MEDS ORDERED: predniSONE 20 MG TABLET PO SCH (09:00)
[2020-07-20] MEDS: Budesonide/Formoterol 160/4.5 1 PUFF INH IH SCH (10:39)
[2020-07-20] MEDS: Azithromycin 500 MG in 0.9 % Sodium Chloride 250 ML IVPB SCH (11:48)
[2020-07-20 11:58] VITALS: BP 110/90
== END 2020-07-20 14:43 | disposition home or self-care (01) | DRG 871 ==
LOC: ICNU → SUATTDRO 07-18 08:47
PROVIDERS: ADMIT Internal Medicine; ATTEND Internal Medicine